=== PATIENT | female | born 1975 | race Caucasian/White ===

== ENCOUNTER 2017-08-27 19:33 | Emergency (ER) | payer MEDICAID ==
[~2017-08-27] VITALS: Ht 162.6 cm; Wt 96.6 kg
[~2017-08-27 19:33] MED LIST: COL100 PO; FERROUS SULFAT325 M2 PO; MOT600 PO; MOTRIN800 MG; NOR10T PO; VITC PO
[2017-08-27 19:37] VITALS: Ht 162.6 cm; Wt 96.6 kg
[2017-08-27 20:36] LABS: CALCIUM 9.2 mg/dL (8.5-10.1); CARBON DIOXIDE 32.3 mmol/L (21-32); CHLORIDE SERUM 103 mmol/L (98-107); CREATININE SERUM 0.7 mg/dL (0.6-1.0); GFR1 > 60 mL/min; GLUCOSE SERUM 107 mg/dL (74-106); POTASSIUM SERUM 3.4 mmol/L (3.5-5.1); SODIUM SERUM 139 mmol/L (136-145)
[2017-08-27 23:14] VITALS: BP 126/75
== END 2017-08-27 23:14 | disposition home or self-care (01) ==
LOC: ED 19:33
PROVIDERS: Emergency Medicine
DX: R20.2 Paresthesia of skin (principal); E78.00 Pure hypercholesterolemia, unspecified; Z90.710 Acquired absence of both cervix and uterus; Z90.49 Acquired absence of other specified parts of digestive tract

== ENCOUNTER 2018-03-30 00:51 | Emergency (ER) | payer MEDICAID ==
[~2018-03-30] VITALS: Ht 152.4 cm; Wt 98.0 kg
[2018-03-30 00:55] VITALS: Ht 152.4 cm; Wt 98.0 kg
[2018-03-30 05:56] VITALS: BP 125/52
== END 2018-03-30 05:56 | disposition home or self-care (01) ==
LOC: ED 00:51
DX: M25.512 Pain in left shoulder (principal); Z90.710 Acquired absence of both cervix and uterus; E78.00 Pure hypercholesterolemia, unspecified